=== PATIENT | male | born 1940 | race Caucasian/White ===

== ENCOUNTER 2017-07-09 10:53 | Day surgery (SDC) | payer MEDICARE, BC ==
[~2017-07-09] VITALS: Ht 172.7 cm; Wt 80.4 kg
[~2017-07-09 10:53] MED LIST: AMLO10 PO; CLOP75 PO; LORA-474 PO; PROT40TA PO; SIMV20 PO; TOPR50TA PO
[2017-07-09] MEDS ORDERED: IOHEXOL 350 MG/ML 100 ML BTL (for Cath Lab) OTHER ONE (10:54)
[2017-07-09 11:35] VITALS: BP 143/69; PULSE 62; RESP 16; TEMP 97.4; O2SAT 98
[2017-07-09] MEDS ORDERED: PROT40TA PO (11:40)
[2017-07-09] MEDS ORDERED: ZOCO20TA PO (11:40)
[2017-07-09] MEDS ORDERED: LORA-474 PO (11:40)
[2017-07-09] MEDS ORDERED: AMLO10 PO (11:40)
[2017-07-09] MEDS ORDERED: NITR1SUB3 SL (11:40)
[2017-07-09] MEDS ORDERED: PLAV75TA29 PO (11:40)
[2017-07-09] MEDS ORDERED: ISOS30TA3 PO (11:40)
[2017-07-09] MEDS ORDERED: TOPR50TA PO (11:40)
[2017-07-09 12:31] LABS: AUTOMATED NEUTROPHIL # 5.7 TH/MM3 (1.8-7.7); BASOPHIL % 0.5 % (0.0-2.0); EOSINOPHIL % 0.6 % (0.0-4.0); HEMATOCRIT 42.8 % (39.0-51.0); HEMO FLAGS DIFF FINAL; LYMPHOCYTE # 1.1 TH/MM3 (1.0-4.8); MEAN CELL VOLUME 88.4 FL (80.0-100.0); MEAN CORPUSCULAR HEMOGLOBIN 29.9 PG (27.0-34.0); MEAN CORPUSCULAR HGB CONC 33.8 % (32.0-36.0); MONO % 6.6 % (0.0-8.0); NEUT % 77.3 % (16.0-70.0); PLATELET COUNT 173 TH/MM3 (150-450); RED BLOOD COUNT 4.84 MIL/MM3 (4.50-5.90); RED CELL DISTRIBUTION WIDTH 13.7 % (11.6-17.2); WHITE BLOOD COUNT 7.3 TH/MM3 (4.0-11.0)
[2017-07-09 12:39] LABS: APTT (PATIENT) 23.7 SEC (24.3-30.1); INTERNATIONAL NORMALIZED RATIO 1.1 RATIO; PROTHROMBIN TIME - PATIENT 11.7 SEC (9.8-11.6)
[2017-07-09 12:50] LABS: BICARBONATE 25.8 MEQ/L (21.0-32.0); POTASSIUM 3.6 MEQ/L (3.5-5.1)
[2017-07-09] MEDS ORDERED: SODIUM CHLORID 0.9% 500 ML INJ 500 ML ONE (12:56)
[2017-07-09] MEDS ORDERED: HEPARIN-NS/PF INJ 1,000 ML ONE (12:56)
[2017-07-09] MEDS ORDERED: MIDAZOLAM HCL 2 MG/2 ML VIAL ONE ×2 (12:56→13:22)
--- NOTE | 2017-07-09 14:19 | CATHPROC ---
hoccer HIS Report Study Information Study Number Admission Scheduled Start Study Start [id number] Jul 09 2017 10:53AM 07/09/2017 Jul 09 2017 12:33PM [place] Service Cardiac Catheterization Admit Source Facility Department Other [facility] - [facility] Physician and Clinical Staff Initial Tomer Michaud Drawing Box Tender Riana Aleman,RN Drawing Box Tender Riana Lopes,RT(R) Recorder Lindsay Olivarez,JUICE TESTER TECH2 Procedures Performed Procedure Location (Site) Vessel Name Angiogram LV LV Ventricle Coronary Angiograms LCA Left Coronary Coronary Angiograms RCA Right Coronary Coronary Angiograms NGUYEN-LAD Left Coronary Coronary Angiograms SVG-DIAG Left Coronary Coronary Angiograms SVG-OM CIRC Coronary Angiograms SVG-RCA Right Coronary L Heart Cath Equipment Time Chute Operator Description Size Mfg Part Number Used/Scraped TRANSDUCER, TRUWAVE [id number] 13:02 [employer] * Used W/STOCKCOCK *[id number]- INTRODUCER SET, 13:31 [employer] FR 5 SC-NT-U-SST Used MICROPUNCTURE, STIFFENED *[id number] 538-476 *[id number] 538-460 *[id number] 538-420 *[id number] 538-472 *[id number] 538-442 *[id number] 538-453S *[id number] 13:02 [employer] INDUSTRIES PACK, CCL CUSTOM * Used *[id number] 13:02 [employer] PACER PEN, SKIN DUAL W/ RULER * Used *[id number] 13:02 [employer] MEDICAL WIRE, 3MMJ .035 180CM 180CM Used *[id number] PROBE COVER, STERILE [id number] 13:02 [employer] * Used ULTRASOUND W/ GEL *[id number] 13:02 NAMIC MANIFOLD, 4 PORT * Used *[id number] 13:02 [employer] OMNIPAQUE, 350 MG, 150ML 150ML [id number] Used 13:52 [employer] OMNIPAQUE, 350 MG, 50ML 50ML [id number] Used [id number] 13:02 [employer],WARM AIR CCL * Used *[id number] 13:02 [employer] MEDICAL SHEATH, FR4 TERUMO (10CM) FR 4 Used *[id number] History: Current Medications Medication Dosage/Unit Route Frequency Last Date/Time Taken PLAVIX Zocor Imdur NORVASC ATIVAN NTG SL History: Allergies Allergy Reaction nitroglycerin Hypotension History: Risk Factors Family History of Hypertension Dyslipidemia Previous TN Previous Heart Failure Premature CAD Yes Yes Yes No No Prior Valve Prior PCI Prior CABG Prior CABGDate Surgery No No Yes 07/23/2003 Cerebrovascular Peripheral Artery Chronic Lung On Dialysis Diabetes Disease Disease Disease No No No No No History: Symptoms/Diagnosis Selection Items Angina-unstable History: CV Disease Selection Items Known CAD History: Stress Tests Stress or Imaging Studies Performed No History: Other Disease Selection Items CAD Gerd HTN History: TN/CV Data Previous CABG Date 07/23/2003 Labs Hgb (g/dl) Hct (%) RBC (MIL/MM3) WBC (l/cumm) Platelets (thousands) 11.60-17.00 35.00-51.00 4.00-5.90 4.00-11.00 150.00-450.00 14.5 42.8 4.8 7.3 173 Glucose (mg/dl) BUN (mg/dl) Creatinine (mg/dl) BUN:Creatinine (1:x) 74.00-106.00 7.00-18.00 0.50-1.30 10.00-20.00 94 22 1.1 20 Na (meq/l) K (meq/l) Cl (meq/l) CO2 (mmol/L) Ca (mg/dl) 136.00-145.00 3.50-5.10 98.00-107.00 21.00-32.00 8.50-10.10 140 3.6 105 25.8 9 PT (sec) PTT (sec) INR (PTT:PT) 9.80-11.60 24.30-30.10 0.90-1.10 11.7 23.7 1.1 Medication Medication Total Dose (Bolus/Oral) Medication Total Dosage/Unit 1% XYLOCAINE 20 mL FENTANYL 75 mcg OXYGEN 2 l/min VERSED 3 mg Medications (Bolus/Oral) Medication Time Given Dosage/Unit Administered By Reason OXYGEN 07/09/2017 1:20:33 PM 2 l/min Riana Aleman 2 l/min OXYGEN given in lab by Riana Aleman RN via Nasal. Ordered by Tomer Farias. VERSED 07/09/2017 1:21:15 PM 2 mg Hesher, Riana 2 mg VERSED given in lab by Riana Aleman RN in Left Antecubital via Peripheral IV. Ordered by Tomer Mccormack. FENTANYL 07/09/2017 1:21:43 PM 50 mcg Hesher, Riana 50 mcg FENTANYL given in lab by Riana Aleman RN in Left Antecubital via Peripheral IV. Ordered by Tomer Farias. VERSED 07/09/2017 1:24:34 PM 1 mg Hesher, Riana 1 mg VERSED given in lab by Riana Aleman RN in Left Antecubital via Peripheral IV. Ordered by Tomer Mccormack. FENTANYL 07/09/2017 1:25:30 PM 25 mcg Hesher, Riana 25 mcg FENTANYL given in lab by Riana Aleman RN in Left Antecubital via Peripheral IV. Ordered by Tomer Farias. 1% XYLOCAINE 07/09/2017 1:30:13 PM 20 mL Tomer Farias 20 mL 1% XYLOCAINE given in lab by Tomer Farias in Right Groin via Subcutaneous. Ordered by Tomer Mcclelland. Medication (Drip) Medication Time Given Dosage/Unit Concentration/Unit Diluent (ml) Solution IV Solutions 07/09/2017 1:00:38 PM 0 mL (IV) 500 NaCl .9 Patient arrived on IV Solutions in Left Antecubital via Peripheral IV. Pump/Drip Flow = 20 ml/hr usin g NaCl .9. Initial Case Assessment Cardiovascular HR NIBP 62 145/72 Edema Present Skin color Skin None Normal Warm Dry Circulatory - Right Pulses Dorsalis Pedis Femoral 3 3 Scale (0,1,2,3,4,d) Circulatory - Left Pulses Dorsalis Pedis Femoral 3 3 Scale (0,1,2,3,4,d) Neurological State Oriented to time-place- Alert Moves all extremities person Respiration - General Respiration Rate SpO2 (%) (B/min) 14 95 Final Case Assessment Cardiovascular HR NIBP 60 129/82 Edema Present Skin color Skin None Normal Warm Dry Circulatory - Right Pulses Dorsalis Pedis Femoral 3 3 Scale (0,1,2,3,4,d) Circulatory - Left Pulses Dorsalis Pedis Femoral 3 3 Scale (0,1,2,3,4,d) Neurological State Oriented to time-place- Alert Moves all extremities person Respiration - General Respiration Rate SpO2 (%) O2 (lpm) (B/min) 15 96 2 Chronological Log Time Study Chronological Log 12:49:55 Patient arrived via Bed. 12:49:56 Patient Name, D.O.B, / Armband Verified By R.N. 12:49:57 Consent signed by the physician and the patient and verified by the [facility] staff. 12:49:58 Pre-op and post- op instructions given; patient acknowledges understanding of instructions. Vitals capture started with the following parameters, Patient=Adult, Interval=5 min, Initial Pr umvror=184 mmHg, 12:59:30 Deflation Rate=5 mmHg, Cuff placed on Left Arm 13:00:11 HR=62 bpm, OCFQ=302/72 mmhg, SpO2=95.0 %, Resp=14 B/min, Pain=0, Jayla=10, Jerry=2 13:00:32 Patient has been NPO for More than 6Hrs. 13:00:33 Skin Breakdown- 13:00:37 A # 20 IV was noted in the Antecubital (left). Grade = 0 13:00:38 Patient arrived on IV Solutions in Left Antecubital via Peripheral IV. Pump/Drip Flow = 20 ml/hr using NaCl .9. 13:01:53 History and physical on the chart or being dictated. Assessment: Initial Case, HR=62 BPM, HOMA=008/72 mmhg, Edema=None, Color=Normal, Skin = Warm, D ry Right Pulses: Jama Ped=3, Femoral=3 13:01:53 Left Pulses: Jama Ped=3, Femoral=3 Neurological: State=Alert, Ox3, ZIEGLER Respiration: Resp=14 B/min, SpO2=95 % 13:02:07 Reference ECG taken 13:04:27 Bilateral groins prepped with 2% chlorhexidine, and draped after a 3 minute waiting time. 13:05:08 WN=192 bpm, WELD=599/73 mmhg, SpO2=97.0 %, Resp=14 B/min, Pain=0, Jayla=10, Jerry=2 13:10:11 HR=84 bpm, GOSR=035/73 mmhg, ReP6=858.0 %, Resp=14 B/min, Pain=0, Jayla=10, Jerry=2 13:11:27 Pressure channel 1 zeroed. 13:15:10 HR=61 bpm, JDTK=753/73 mmhg, SpO2=99.0 %, Pain=0, Jayla=10, Jerry=2 13:20:11 HR=62 bpm, JUVT=326/74 mmhg, XiR4=983.0 %, Resp=10 B/min, Pain=0, Jayla=10, Jerry=2 13:20:33 2 l/min OXYGEN given in lab by Riana Aleman RN via Nasal. Ordered by Tomer Farias. 13:21:15 2 mg VERSED given in lab by Riana Aleman RN in Left Antecubital via Peripheral IV. Order ed by Tomer Farias. 50 mcg FENTANYL given in lab by Riana Aleman RN in Left Antecubital via Peripheral IV. Order ed by Jarrett, 13:21:43 Tomer. 13:24:34 1 mg VERSED given in lab by iRana Aleman RN in Left Antecubital via Peripheral IV. Order ed by Tomer Farias. 13:25:12 HR=66 bpm, TZAN=988/76 mmhg, SpO2=99.0 %, Resp=14 B/min, Pain=0, Jayla=10, Jerry=2 25 mcg FENTANYL given in lab by Riana Aleman RN in Left Antecubital via Peripheral IV. Order ed by Jarrett, 13:25:30 Tomer. Time Out. Correct patient, correct procedure, correct physician, power injector not loaded with contrast with surgical 13:28:53 team present. Time Out Concurred by MD and individual staff in procedure. 13:29:10 Case Start 13:30:11 HR=51 bpm, AHVM=701/74 mmhg, SpO2=94.0 %, Resp=16 B/min, Pain=0, Jayla=10, Jerry=2 20 mL 1% XYLOCAINE given in lab by Tomer Farias in Right Groin via Subcutaneous. Ordered by Jarrett, 13:30:13 Tomer. 13:31:03 Access site was Right Femoral Artery. A INTRODUCER SET, MICROPUNCTURE, STIFFENED FR 5 was advanced into the Fem Art (right) using the Modified 13:31:10 Seldinger technique. A SHEATH, FR4 TERUMO (10CM) FR 4 was exchanged in the Fem Art (right). This was necessary in or vineet to achieve 13:31:28 vascular hemostasis. A JL 4.0 INFINITI CATHETER FR 4 was advanced over a wire. OMNIPAQUE, 350 MG, 150ML 150ML was us ed for 13:34:36 injections. Recorded Pressure: Ao, HR=78, Condition=Condition 1 13:34:48 (Aorta) Ao 114/62/86 13:35:08 The LCA was injected and visualized at various angles. OMNIPAQUE, 350 MG, 150ML 150ML used . 13:35:10 HR=62 bpm, FGMN=431/72 mmhg, SpO2=95.0 %, Resp=17 B/min, Pain=0, Jayla=10, Jerry=2 13:35:17 Catheter was removed A 3DRC INFINITI CATHETER FR 4 was advanced over a wire. OMNIPAQUE, 350 MG, 150ML 150ML was used for 13:35:18 injections. 13:36:45 The RCA was injected and visualized at various angles. OMNIPAQUE, 350 MG, 150ML 150ML used . 13:37:20 Catheter was removed A MPA-2 INFINITI CATHETER FR 4 was advanced over a wire. OMNIPAQUE, 350 MG, 150ML 150ML was use d for 13:37:44 injections. 13:39:38 The SVG-RCA was injected and visualized at various angles. OMNIPAQUE, 350 MG, 150ML 150ML u sed. 13:39:54 Catheter was removed 13:40:11 HR=62 bpm, EVDG=159/69 mmhg, SpO2=98.0 %, Resp=13 B/min, Pain=0, Jayla=10, Jerry=2 13:41:14 A LCB INFINITI FR 4 was advanced over a wire. OMNIPAQUE, 350 MG, 150ML 150ML was used for i njections. 13:42:01 The SVG-OM was injected and visualized at various angles. OMNIPAQUE, 350 MG, 150ML 150ML us ed. 13:43:25 The SVG-DIAG was injected and visualized at various angles. OMNIPAQUE, 350 MG, 150ML 150ML used. 13:44:20 Catheter was removed 13:44:52 A IM INFINITI CATHETER FR 4 was advanced over a wire. OMNIPAQUE, 350 MG, 150ML 150ML was us ed for injections. 13:45:12 HR=59 bpm, WYIJ=078/71 mmhg, SpO2=97.0 %, Resp=14 B/min, Pain=0, Jayla=10, Jerry=2 13:47:34 The NGUYEN-LAD was injected and visualized at various angles. OMNIPAQUE, 350 MG, 150ML 150ML used. 13:48:17 Catheter was removed A PIGTAIL ANG. INFINITI CATHETER FR 4 was advanced over a wire. OMNIPAQUE, 350 MG, 150ML 150ML was used 13:48:48 for injections. 13:49:56 LV INJECTOR LOADED WITH CONTAST AND VERIFIED TO BE FREE OF AIR BY RIANA ALEMAN RN 13:50:13 HR=61 bpm, DTEZ=074/67 mmhg, SpO2=98.0 %, Resp=16 B/min, Pain=0, Jayla=10, Jerry=2 Recorded Pressure: LV, HR=60, Condition=Condition 1 13:50:17 (Left Ventricle) LV 130/4/15 13:51:34 The LV was injected at 8 cc/sec for a total of 32. OMNIPAQUE, 350 MG, 50ML 50ML used. Recorded Pressure: LV, Ao, HR=64, Condition=Condition 1 13:51:54 (Left Ventricle) LV 137/9/5, (Aorta) Ao 141/56/95 13:52:35 Catheter was removed 13:52:38 Case End 13:52:44 Catheter(s) removed without difficulty 13:55:10 HR=58 bpm, UMJP=133/61 mmhg, SpO2=96.0 %, Resp=12 B/min, Pain=0, Jayla=10, Jerry=2 14:00:13 HR=56 bpm, DMIX=960/67 mmhg, SpO2=94.0 %, Resp=18 B/min, Pain=0, Jayla=10, Jerry=2 14:05:12 HR=56 bpm, VCAF=025/64 mmhg, SpO2=95 %, Resp=16 B/min, Pain=0, Jayla=10, Jerry=2 14:10:13 HR=54 bpm, WHUC=297/64 mmhg, SpO2=95.0 %, Resp=12 B/min, Pain=0, Jayla=10, Jerry=2 14:15:10 HR=60 bpm, WSUW=727/82 mmhg, SpO2=96.0 %, Resp=15 B/min, Pain=0, Jayla=10, Jerry=2 14:17:23 Sterile dressing applied to site 14:17:24 No case complications noted. Assessment: Final Case, HR=60 BPM, HHLD=834/82 mmhg, Edema=None, Color=Normal, Skin = Warm, Dry Right Pulses: Jama Ped=3, Femoral=3 14:17:47 Left Pulses: Jama Ped=3, Femoral=3 Neurological: State=Alert, Ox3, ZIEGLER Respiration: Resp=15 B/min, SpO2=96 %, O2=2 lpm 14:17:49 Vitals capture stopped. 14:18:30 Cine recording checked. 14:18:34 Bedside Report will be given. 14:18:36 Contrast Scanned 14:18:41 A Left Heart Cath was performed. 14:18:44 Patient moved to stretcher 14:18:46 Clinical correlaton risk stratification. End Study - Contrast Media Used In Study Contrast Total Opened (mL) Total Used (mL) Total Wasted (mL) Omnipaque 100 100 0 End Study - Maximum Contrast Load Max Contrast Load (mL) 365.5 End Study - Radiation Exposure Fluoro Time (minutes) 6.8 End Study - Patient Disposition Complications Transferred To No Telemetry Bed
[2017-07-09] MEDS ORDERED: NS 1000P @30 MLS/HR (KVO) IV SCH (14:30)
--- NOTE | 2017-07-10 09:05 | MA ---
cc: TOMER FARIAS M.D. DATE: 07/09/2017 INDICATION FOR CATHETERIZATION Unstable angina. BRIEF HISTORY: This is a very pleasant 77 year-old man who is having chest pain similar to what he had on his prior bypass surgeries. He has had bypass twice, the first time with Dr. Doll, the second time with Dr. Ryan. He is here for diagnostic heart catheterization. CONSENT: A fully informed consent was obtained prior to the procedures. The risks of , bleeding, myocardial infarction, perforation, aspiration, risk of stent placing, bypass surgery were reviewed. The patient fully appeared to understand the risks and is willing to proceed. PROCEDURE 1. Left heart catheterization. 2. Bilateral coronaries. 3. Saphenous vein graft injection 4. Left ventriculogram. PROCEDURE: The patient was prepped and draped. The right femoral artery was entered using a micropuncture technique with ultrasound via the 4-Cymraes sheath. Left side coronary catheter was used to intubate the left and right coronaries. Pigtail catheter was used to intubate the left ventricle. Multiple angiographic views were carried out. A multipurpose catheter was used to intubate the vein graft to the right and left coronary bypass with vain grafts to the OM1 and the vein graft to the first diagonal. A high Amplatz was used to intubate the left internal mammary. Pigtail catheter was used to intubate the left ventricle. Multiple angiographic views were carried out. At the end of the catheterization procedure, all catheters and sheaths were removed. Manual pressure was applied until the patient had good hemostasis. The patient returned to her room in stable condition. FINDINGS HEMODYNAMICS: The aortic pressure was 141/56, with a mean of 95. The left ventricular pressure is 137. The left ventricular pressure of 5. There was no evidence of significant gradient on pullback across the LV outflow tract or aortic valve. LEFT VENTRICULOGRAM: The overall left ventricular ejection fraction was well preserved at 60%. There was no evidence of significant mitral regurgitation or mural thrombus. CORONARY ARTERIES: The left main coronary artery was totally occluded proximally. The left anterior descending artery was totally occluded proximally. The right coronary artery was totally occluded proximally. The vein graft to the distal right was widely patent filling the PDA. The vein graft to the OM was widely patent and filled the obtuse marginal branch well. There was a lower branch that also filled well. The vein graft to the diagonal branch was also widely patent with excellent anastomosis to the diagonal. The left internal mammary artery is widely patent. There is evidence of very diffuse LAD disease in the terminal LAD. The internal mammary graft LAD anastomosis was widely patent and excellent. CONCLUSION: Some progression of disease when compared to the prior cath on 2011, however, all four grafts are patent and overall the patient is doing fairly well with a normal LV function. Tomer Farias MD, FRCP,[facility]DHEER /2:19 PM /8:57 AM
--- NOTE | 2017-07-11 22:04 | EKG ---
Date Performed: 07/09/2017 Time Performed: 12:26:58 PTAGE: 77 years EKG: Sinus rhythm with 1st degree A-V block. Possible inferior infarct - age undetermined Abnormal ECG PREVIOUS TRACING : 01/28/2012 20.56 DOCTOR: Chepe Bingham Interpretating Date/Time 07/11/2017 22:02:26
== END 2017-07-09 18:05 | disposition home or self-care (01) ==
LOC: HDOC 10:53 → HDIC 10:53 → HDOC 18:05
PROVIDERS: ATTEND Internal Medicine Cardiovascular Disease
DX: I25.110 Atherosclerotic heart disease of native coronary artery with unstable angina pectoris (principal); I10 Essential (primary) hypertension; E78.5 Hyperlipidemia, unspecified; K21.9 Gastro-esophageal reflux disease without esophagitis; Z95.1 Presence of aortocoronary bypass graft
CPT/HCPCS: 80048; 85025; 85610; 85730; 93005; 93459; C1769; C1893; J1644; J2250; J3010; J7040; Q9967